=== PATIENT | female | born 1970 | race Caucasian/White ===

== ENCOUNTER → 2021-01-12 11:06 | Outpatient (CLI) | payer BC, SELFPAY ==
[2021-01-12 22:12] LABS: SARS-CoV-2 RNA PCR Negative
== END ==
PROVIDERS: PCP Family Medicine; Visit Provider Family Medicine
DX: B34.9 Viral infection, unspecified (principal); Z20.822 Contact with and (suspected) exposure to COVID-19
CPT/HCPCS: C9803; U0003; U0005

== ENCOUNTER → 2021-02-28 07:22 | Outpatient (CLI) | payer BC, SELFPAY ==
--- NOTE | ~2021-02-28 | US_ITS ---
US abdomen complete DATE: 02/28/2021 08:00 INDICATION: Epigastric abdominal pain and pressure TECHNIQUE: Real-time and color flow imaging and Doppler analysis COMPARISON: None FINDINGS: No hepatic or pancreatic space-occupying mass lesion. Normal hepatopedal portal venous flow direction. No gallstones or gallbladder wall thickening. The common bile duct measures 5.3 mm, tyler l. Negative sonographic Hudson's sign. No renal mass lesion or hydronephrosis. Right kidney measures approximately 9.9 cm length, left kidne y 10.9 cm. Normal caliber of the abdominal aorta. The inferior vena cava is unremarkable. Normal splenic size. IMPRESSION: No significant abnormality Reviewed, dictated and finalized at Location A. Reviewed, dictated and finalized at location A. IMPRESSION: No significant abnormality
== END ==
PROVIDERS: Visit Provider Family Medicine
DX: R10.13 Epigastric pain (principal)
CPT/HCPCS: 76700

== ENCOUNTER → 2021-10-15 04:34 | Outpatient (CLI) | payer BC, SELFPAY ==
[2021-10-15 17:37] LABS: SARS-CoV-2 RNA PCR Negative
== END ==
PROVIDERS: PCP Family Medicine; Visit Provider Family Medicine
DX: M25.50 Pain in unspecified joint (principal); Z20.822 Contact with and (suspected) exposure to COVID-19
CPT/HCPCS: C9803; U0003; U0005

== ENCOUNTER → 2021-11-17 10:59 | Outpatient (CLI) | payer BC, SELFPAY ==
--- NOTE | ~2021-11-17 | XR_ITS ---
XR thoracic spine 3V DATE: 11/17/2021 11:22 INDICATION: Back pain TECHNIQUE: AP, lateral, swimmer views COMPARISON: None FINDINGS: Diffuse osteopenia. There is mild to moderate degenerative disease at C5-6 and C6-7. There is mild degenerative spurring of the thoracic spine. Slight thoracic scoliosis. No fracture or dislocation or bone destruction of the thoracic spine. The thoracic pedicles are intac t. No paraspinal soft tissue thickening. IMPRESSION: Mild degenerative spurring of the thoracic spine Osteopenia Slight scoliosis Reviewed, dictated and finalized at location A. INVESTIGATOR
--- NOTE | ~2021-11-17 | XR_ITS ---
XR lumbar spine 2-3V DATE: 11/17/2021 11:22 INDICATION: Back pain TECHNIQUE: AP, lateral and coned lateral lumbosacral views COMPARISON: None FINDINGS: Slight levoscoliosis. No fracture or spondylolisthesis or bone destruction. The lumbar pedi cles are intact. There is minimal degenerative spurring at the T12-L1 interspace. Lumbosacral interspaces are well pre served. The sacroiliac joints are intact. IMPRESSION: Slight levoscoliosis Mild degenerative change Reviewed, dictated and finalized at location A. LING LINE OPERATOR
== END ==
PROVIDERS: PCP Family Medicine; Visit Provider Physician Assistant
DX: M47.815 Spondylosis without myelopathy or radiculopathy, thoracolumbar region (principal); M41.9 Scoliosis, unspecified
CPT/HCPCS: 72072; 72100

== ENCOUNTER → 2021-12-12 08:57 | Outpatient (CLI) | payer BC, SELFPAY ==
--- NOTE | ~2021-12-12 | MM_ITS ---
EXAMINATION: MM screening [facility] BI w joshua HISTORY: Screening mammogram TECHNIQUE: Craniocaudal and mediolateral oblique 3-D tomosynthesis images were obtained and synthetic 2-D images were generated. CAD analysis was submitted and interpreted. COMPARISON: 02/16/2019, 09/29/2017, 09/29/2015 bilateral screening mammogram examinations BREAST PARENCHYMAL COMPOSITION: The breasts are heterogeneously dense, which may obscure small masses . FINDINGS: There is no evidence of suspicious mass, calcification, or architectural distortion to sugg est malignancy in either breast. There has been no suspicious interval change. IMPRESSION: 1. No mammographic evidence of malignancy. 2. Recommend routine screening mammography in one year. BI-RADS Category 1: Negative Reviewed, dictated and finalized at location A. D SYSTEM INSTALLER
--- NOTE | ~2021-12-12 | DEXA_ITS ---
Bone Density Report Name: GLORIA LICONA Age: 51 Sex: Female Ethnicity: White Date of : 1970 Indication: postmenopausal; Referring Provider: STEFANI, PARTHA Study: Bone densitometry was performed. Exam Date: December 12, 2021 Accession number: [id number] Bone Density: Region BMD T-score Z-score Classification AP Spine (L1-L4) 0.990 -0.5 0.2 Normal Femoral Neck (Left) 0.791 -0.5 0.2 Normal Total Hip (Left) 0.856 -0.7 -0.3 Normal Femoral Neck (Right) 0.840 -0.1 0.6 Normal Total Hip (Right) 0.862 -0.7 -0.2 Normal Total Hip Mean 0.859 -0.7 -0.3 Normal World Health Organization criteria for BMD impression classify patients as: Normal (T-score at or above -1.0), Osteopenia (T-score between -1.0 and -2.5), or Osteoporosis (T-score at or below -2.5). 10-year Fracture Risk: FRAX not reported because: All T-scores for Spine Total, Hip Total, Femoral Neck at or above -1.0 Clinical Information Provided by Patient: Patient maximum height was 66 Menopause Age: 49 No regular weight bearing exercise Drinks caffeinated beverages Onset of menses at age 17 Number of children 3 Impression: The patient has normal bone mass. Discussion: BONE DENSITY IS ABOVE THE MINIMUM DESIRABLE LEVEL AT ALL SKELETAL SITES TESTED. This patient?s bone mineral density is above the minimum desirable level (T-score -1.0 or better) at all sites measured. The patient should follow a healthful lifestyle (good nutrition with adequate calcium and vitamin D, and appropriate weight-bearing exercise). Follow-Up: Consider repeating this study in 5 years or sooner if there is some new clinical indication. Reported by: NHUNG on 12/12/2021 9:33:00 AM. Reviewed, dictated and finalized at location APaco PANDYA
== END ==
PROVIDERS: PCP Family Medicine; Visit Provider Nurse Practitioner
DX: Z12.31 Encounter for screening mammogram for malignant neoplasm of breast (principal); Z78.0 Asymptomatic menopausal state
CPT/HCPCS: 77063; 77067; 77080

== ENCOUNTER → 2022-01-18 09:59 | Outpatient (CLI) | payer BC, SELFPAY ==
--- NOTE | ~2022-01-18 | XR_ITS ---
EXAMINATION: XR shoulder RT min 2V DATE: 01/18/2022 10:14 INDICATION: Right shoulder pain. TECHNIQUE: 4 views of right shoulder were obtained. COMPARISON: None. FINDINGS: Bone alignment is normal. No fracture. Joint spaces are normal. There is calcific tendiniti s of the rotator cuff. IMPRESSION: 1. Calcific tendinitis of right rotator cuff. Reviewed, dictated and finalized at location A. HITE MILL OPERATOR
== END ==
PROVIDERS: PCP Family Medicine; Visit Provider Physician Assistant
DX: M25.511 Pain in right shoulder (principal); M65.811 Other synovitis and tenosynovitis, right shoulder
CPT/HCPCS: 73030

== ENCOUNTER 2022-01-20 12:24 | Outpatient (CLI) | payer BC, SELFPAY ==
--- NOTE | ~2022-01-20 | XR_ITS ---
EXAMINATION: XR lg joint inject/asp w image DATE: 01/20/2022 13:08 INDICATION: Right shoulder pain. TECHNIQUE: A time-out was performed to verify the patient's name, date of , and procedure to b e performed. The procedure including the risks, benefits, and alternatives was discussed with the pat ient. Risks discussed included bleeding and infection. The patient understood the risks and agreed to proceed. The skin overlying the right glenohumeral joint was prepped and draped in usual sterile fa shion. Anesthetic was administered with 1% lidocaine subcutaneously. A 22 G needle was advanced und er fluoroscopic guidance into the joint. Injection of 1 mL of Omnipaque 240 confirmed intra-articula r position of the needle. Subsequently, injectate consisting of 3 mL 1% lidocaine and 1 mL 40 mg/mL triamcinolone was instilled. The needle was removed and the entry site was cleaned and dressed. The re were no immediate complications. Fluoroscopy exposure time was 0.1 minutes. The total number of im ages was 1. FINDINGS: Real-time fluoroscopy demonstrates the needle in the right glenohumeral joint. Patient's pa in prior to procedure:06/23. Patient's pain following the procedure: 12/24. IMPRESSION: 1. Fluoroscopy guided right glenohumeral joint injection of local anesthetic and steroid with decreas e in the patient's presenting pain. Reviewed, dictated and finalized at location A. RAM PROPOSALS COORDINATOR IMPRESSION: 1. Fluoroscopy guided right glenohumeral joint injection of local anesthetic an d steroid with decrease in the patient's presenting pain.
== END 2022-01-20 12:25 | disposition home or self-care (01) ==
PROVIDERS: PCP Family Medicine; Visit Provider Physician Assistant
DX: M25.511 Pain in right shoulder (principal)
CPT/HCPCS: 20610; 77002; J3301; Q9966

== ENCOUNTER → 2022-07-22 16:50 | Outpatient (CLI) | payer BC, SELFPAY ==
--- NOTE | ~2022-07-22 | XR_ITS ---
EXAMINATION: XR knee RT min 4V DATE: 07/22/2022 17:11 INDICATION: Right knee pain TECHNIQUE: Weight bearing anteroposterior and Anderson, sunrise, and flexed lateral views of the rig ht knee were obtained COMPARISON: None. FINDINGS: Slight lateral patellar tilt and subluxation with mild to moderate joint space narrowing at the later al side of the patellofemoral compartment. Alignment of the right knee is otherwise normal. No fractu re. Joint spaces at the medial and lateral compartments are relatively preserved. Small marginal oste ophytes along the inferior and lateral margins of the patella and along the lateral margin of the lat eral tibial plateau. Tiny marginal osteophytes at the medial compartment. Soft tissues are unremarkab le. No definitive right knee joint effusion. IMPRESSION: 1. 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 Reviewed, dictated and finalized at location A. IMPRESSION: 1. Mild patellofemoral and minimal medial and lateral compartment osteoarthriti s.
== END ==
PROVIDERS: PCP Family Medicine; Visit Provider Family Medicine
DX: M25.561 Pain in right knee (principal); M17.11 Unilateral primary osteoarthritis, right knee
CPT/HCPCS: 73564

== ENCOUNTER 2024-02-23 00:19 | Day surgery (SDC) | payer BC, SELFPAY ==
--- NOTE | 2024-02-14 09:55 | PC.NURSE ---
Report to the Outpatient Waiting Room, entrance under the green pavilion located off [facility], at time _1145 on date _02/23/24 . Planned Procedure Time: _1345 . Time changes happen often and if your time is changed the preop area will call you the afternoon before. - You and your visitor will be asked to self-screen and do not enter if you have any COVID symptoms. - A mask is optional within the hospital at this time. Patients may have clear liquids (water, carbonated beverages, clear teas, apple juice) until 8 hours prior to surgery with a maximum of 20 ounces. - No food from midnight until time of surgery - Infants may have breast milk until 4 hours before surgery, formula 6 hours prior to surgery. - Children will be allowed to drink immediately following surgery. If applicable, please bring a bottle or sippy cup to assist with drinking. Juice, water, soda, and popsicles are readily available. For infants on formula, please bring formula the day of surgery. Pacifiers are allowed. Take the following medications with a SIP of water the morning of surgery: __Levothyroxine and escitalopram DO NOT STOP ANY OF YOUR OTHER PRESCRIPTION MEDICATIONS PRIOR TO SURGERY ?EXCEPT THE FOLLOWING Medications to discontinue per physician __Vitamins Date to take last dose____3 days prior Please no make-up, nail austrian, hairspray, perfume, deodorant, or body powder the day of surgery. No jewelry (including any body piercings) or valuables the day of surgery, leave them at home. Please take a shower or bath the night before, or the morning of, surgery with an antibacterial soap. Wear comfortable, loose fitting clothing. Children are encouraged to wear pajamas. - Jewelry must be removed prior to entering the operating room. Rings and piercings that are not removed may be cut off. - The hospital will not accept responsibility for valuables. - Please leave all valuables, including medications, at home the day of surgery. If you are going home after surgery, a licensed regional company truck driver must drive you home. - NO public transportation without another adult if you receive anesthesia. - We recommend that an adult stay with you for 24 hours following discharge. - We also recommend that you do not drive, make important decision, drink alcoholic beverages, or take any drugs that were not prescribed by your health care provider for at least 24 hours after your discharge time. For Pediatric surgeries, we recommend two adults accompany the child home. Follow any additional instructions given to you from your surgeon. If you or anyone in your household have experienced Covid symptoms in the past week, please notify your surgeon or the nurse liaison at the phone number below for possible testing. Telephone instructions given to _Tanya___and asked if any additional questions and then verbalized understanding. Patient advised to call surgeon office or pre surgery nurse liaison [phone] if any additional questions.
[2024-02-14 09:58] VITALS: BMI 33.0
--- NOTE | 2024-02-23 07:07 | P.OP_ITS ---
Procedure Note - Detailed Date of Procedure 02/23/24 Pre-op Diagnosis right middle finger ganglion and retinacular cyst and left middle finger pipjoint dorsal mass/ganglion Post-op Diagnosis Same Procedure Performed excisiion right middle finger mucous cyst and retiancular cyst and left middle finger dorsal pipjoint mass Surgeon Beni Gilbert MD Anesthesia MAC Description of Procedure INFORMED CONSENT: The patient was seen and examined and marked in the pre-op area.? The patient signed the consent form. PROCEDURE IN DETAIL:The patient taken back to OR on the stretcher in supine position. Time out performed with anesthesia, surgeon and staff agreeing on patient's name site and surgery to be performed SCDs were placed on the lower extremities and inflated. A tourniquet was placed on {right} upper extremity and antibiotics given IV After anesthesia administered sedation I injected {10}cc 1%lido and 0.5% marcaine plain at the operative site sites The?{right upper extremity and left middle finger}?was prepped and draped in sterile fashion the??{right upper extremity} was? exsanguinated with Esmarch bandage and tourniquet inflated to 250mmHg I proceeded with making an elliptical incison around affected skin of right middle finger mucous cyst through skin and dermis extending this curvilinear incision proximally to dipjoint. I elevated skin flaps and proceeded with dissection around the mucous cyst back to dipjoint capsule. I elevated periosteum off of a small osteophyte which was rongeured til flat. I irrigated with normal saline and cauterized with bipolar. I repaired the capsular defect with 4-0 monocry. 4-0 chromic was used for skin. Next I took my attention to the right middle finger retinacular cyst. I made an oblique incision across Right middle finger MPJoint flexion crease through skin and dermis with a 15 blade scalpel. I elevated skin flaps and used littler s cissors to spread through subq down to the cyst coming off the a2 ensha. I made a square incision in a2 nesha around the cyst to excise the cyst. The underlying tendons appeared normal. I cauterized the edges of the nesha, irrigated with normal saline and closed skin with 4-0 chromic. A dressing of Dermabond, 4x4, katya, and a volar splint was applied for patient safety, security, and comfort and secured with an sharon bandage after the tourniquet was let down noting the hand was warm and well perfused. Next we proceeded with preppeing and draping the left middle finger in sterile fashion. I used a reena drain and clamp to created a digital tourniquet. I made an incision with 15 blade scalpel over the left middle finger pipjoint mass throgh skin and dermis continuing sharp circumferential dissection down to the pipjoint capsule. I irrigated with normal saline and closed skin with 4-0 chromic. A dressing of xeroform, 4x4 and tube gauze was applied. The patient was then awaken from anesthesia and transferred to the recovery room in stable condition.? Complications - none EBL- 0cc Disposition - home in stable conditions [facility] Billing Surgery - Charge Forward: Surgery Billing ([id number],59,XS and [id number]- LT,59)
--- NOTE | 2024-02-23 07:07 | WPDHPUPDATE1 ---
History and Physical Update Update Date/Time: 02/23/24 07:07 Patient seen and examined in pre-operative holding area. No interval change in medical history or symptoms. Patient recalls previous discussion of benefits and alternatives to procedure. Continues to desire to proceed with right middle finger mucous cyst and retinacular cyst excision possible tissue transfer and left middle finger pipjoint dorsal mass excision. Reviewed procedure, post-op expectations and risks including but not limited to bleeding, infection, injury to tendon/nerve/vessel, decreased hand function, stiffness, RSD, no change or worsening of symptoms, recurrence. I discussed the possible use of assistants and their participation in the case. Patient stated understanding and signed the consent form wishing to proceed.
[2024-02-23 11:01] VITALS: BP 133/81; PULSE 82; RESP 16; TEMP 36.4; O2SAT 97
[2024-02-23] MEDS: LACTATED RINGERS 1,000 ML 30 ML IV CONT (11:16)
--- NOTE | 2024-02-23 11:57 | WPDANESEPPF ---
Anes - Initial Pre Proc Eval Procedure: Operation Date: 02/23/24 13:00 Proposed Procedures p Excision Right Midde Finger Mucous Retinacular Cyst and Excision of Left Middle Finger Ganglion - Beni Gilbert MD Date/Time: 02/23/24 11:57 Surgeon: Beni Gilbert MD Pre Op Diagnosis: Digital Mucous Cyst Rt Middle Finger Patient Data Age: 53 Gender: F Height: 1.68 m Weight: 91.9 kg Last Vital Signs Temp 97.6 F 02/23/24 11:01 Pulse 82 02/23/24 11:01 Resp 16 02/23/24 11:01 BP 133/81 02/23/24 11:01 Pulse Ox 97 02/23/24 11:01 O2 Del Method Room Air 02/23/24 11:01 Allergies Allergy/AdvReac Type Severity Reaction Status Date / Time No Known Allergies Allergy Verified 02/23/24 10:55 Home Medications Medication Instructions Recorded Confirmed Type levothyroxine 100 mcg tablet 100 mcg PO DAILY #114 tabs 08/23/23 02/14/24 Rx escitalopram oxalate 10 mg tablet 10 mg PO DAILY #60 tabs 12/22/23 02/14/24 Rx multivit with minerals-iron 18 1 tablet PO DAILY 02/14/24 02/14/24 History mg-folic ac 400 mcg-vit K 25 mcg tablet (Adults Multivitamin) omeprazole 20 mg capsule,delayed 20 mg PO PRN PRN Indigestion 02/14/24 02/14/24 History release tramadol 50 mg tablet 50 mg PO Q6H PRN pain #12 tabs 02/23/24 Rx Patient hx anesthesia problems: none Family hx anesthesia problems: none Results Review: All pre-operative results and documents have been reviewed as part of the pre-operative evaluation. [facility] Past Medical History Medical History Depression Headache History of basal cell carcinoma Hypothyroidism Surgical History Surgical History History of surgical removal of squamous cell carcinoma of skin of left yazidi basal cell 11/2001 Hx of left knee surgery knee cap 07/2010 Family History Family History Father Acute myocardial infarction Heart disease history CABG Mother Hypothyroidism Grandparent Heart disease Lung cancer Alzheimer's dementia Social History Social History Smoking packs per day: 1 Smoking cigarettes per day: 20.0 Years smoked: 2 Smoking pack-years: 2.00 Smoking status: Former smoker Tobacco type: cigarettes Smoking end date: 11/14/03 Alcohol intake: current Drinks per week: 4 Substance use: never Substance use type: does not use Do You Feel Safe in your Home?: Yes Lack of Transportation: No Lack of Food: Never True Current Housing: I Have Housing Concerned About Future Housing: No Difficulty Paying Gas/Electric Bills: No Difficulty Paying for Meds: No Currently Unemployed: No Education: Decline to Answer Difficulty w/ Childcare or Family Care: Decline to Answer Living arrangements: with family Occupation/Education: occupation Gender identity (if verbalized by the patient): Female Sexual Orientation (if Verbalized by the Patient): Straight or Heterosexual Spiritual care concerns: No Anes - Eval Final PreProcedure Day of Procedure 02/23/24 11:57 Patient weight: obese Heart: regular rate and rhythm Lungs: clear to auscultation Airway: Mallampati scale and special considerations (Perm implant intact. ) Neurological: alert and oriented Last oral intake: >/= 8 hours ASA classification: II Emergent: no Anesthetic plan: proceed Anesthesia type and monitoring: general GIVS and standard monitoring Results Review: All pre-operative results and documents have been reviewed as part of the pre-operative evaluation. Informed Consent: The patient's anesthetic plan and its attendant risks and benefits were discussed with the patient/family/POA. Questions were solicited and answers provided to the satisfaction of the patient/family
[2024-02-23] MEDS: ceFAZolin 2 GM/D5W 50 ML 2 GM/50 ML BAG IVPB (12:55)
[2024-02-23] MEDS: LIDO 1%/EPINEPHRINE 1:100,000 50 ML VIAL INFILTRATE (13:22)
[2024-02-23] MEDS: LIDOCAINE HCL 1% LOCAL INJ 10 ML VIAL INFILTRATE (13:23)
[2024-02-23 13:37] VITALS: BP 88/48; PULSE 83; RESP 16; O2SAT 99
[2024-02-23 14:10] VITALS: BP 114/69; PULSE 66; RESP 14
[2024-02-23 14:18] VITALS: BP 118/68; PULSE 70; RESP 14
== END 2024-02-23 14:25 | disposition home or self-care (01) ==
PROVIDERS: PCP Family Medicine; Visit Provider Plastic Surgery
PROC: (CPT 26160; principal; 2024-02-23 13:00)
DX: M67.442 Ganglion, left hand (principal); M67.441 Ganglion, right hand; M25.741 Osteophyte, right hand; F32.A Depression, unspecified; E03.9 Hypothyroidism, unspecified; E66.9 Obesity, unspecified; Z68.32 Body mass index [BMI] 32.0-32.9, adult; Z79.891 Long term (current) use of opiate analgesic; Z98.890 Other specified postprocedural states; Z87.891 Personal history of nicotine dependence; Z85.828 Personal history of other malignant neoplasm of skin; Z82.49 Family history of ischemic heart disease and other diseases of the circulatory system
CPT/HCPCS: 26160 ×3; 88305; J0690; J2250; J2704; J3010; J7120

== ENCOUNTER 2024-02-24 12:23 | Outpatient (CLI) | payer BC, SELFPAY ==
--- NOTE | ~2024-02-24 | MM_ITS ---
EXAMINATION: MM screening [facility] BI w joshua HISTORY: Screening TECHNIQUE: Craniocaudal and mediolateral oblique 3-D tomosynthesis images were obtained and synthetic 2-D images were generated. CAD analysis was submitted and interpreted. COMPARISON: Comparison to multiple prior studies sequentially, with oldest reviewed study dated 2018. BREAST PARENCHYMAL COMPOSITION: Not dense: There are scattered areas of fibroglandular density. FINDINGS: There is no evidence of suspicious mass, calcification, or architectural distortion to sugg est malignancy in either breast. There has been no suspicious interval change. IMPRESSION: 1. No mammographic evidence of malignancy. 2. Recommend routine screening mammography in one year. BI-RADS Category 1: Negative Reviewed, dictated and finalized at location A.
== END 2024-02-24 12:24 ==
LOC: MICIMG 12:24
PROVIDERS: PCP Family Medicine; Visit Provider Nurse Practitioner
DX: Z12.31 Encounter for screening mammogram for malignant neoplasm of breast (principal)
CPT/HCPCS: 77063; 77067

== ENCOUNTER 2025-03-11 00:28 | Day surgery (SDC) | payer OTHER, SELFPAY ==
[2025-02-26 14:24] VITALS: BMI 35.0
--- OUTSIDE RECORDS SUMMARY | 2025-03-11 00:31 | XMS_ITS | Clinical Summary ---
Author Organization [facility] Address [address] [place] [address] Care Team Providers Care Guest Services Coordinator Name Role Phone Unavailable Primary Care Provider Unavailabl e Source Comments [facility],non-owned Affiliates and Associated Physician Practices is amultiple site organization consisting of ambulatory clinics and hospital sitesin [place], [place], [place] and [place]. This disclosure is being madepursuant to the Care Everywhere program and may not contain all information available regarding this patient. Last updated 18.[facility] Allergies No known active allergies Medications * Be aware that medications may not be up to date on this document. Alwaysverify current medications with the patient. levothyroxine (SYNTHROID) 75 MCG tablet Take 75 mcg by mouth once daily 06/22/2021 Active escitalopram (LEXAPRO) 20 MG tablet Take 20 mg by mouth once daily 07/26/2021 Active Acetaminophen (TYLENOL) 325 MG CAPS Take by mouth once daily as needed Active ibuprofen (ADVIL) 200 MG capsule Take 200 mg by mouth once daily as needed for Pain Active Immunizations Immunization Administration Dates Next Due TDAP (7yrs+) 04/27/2020 Family History Medical History Relation Name Comments CAD (Coronary Artery Disease) Father Thyroid Disease Mother Migraine Sister Relation Name Status Comments Father Alive Mother Alive Sister Alive Social History Tobacco Use Types Packs/Day Years Used Date Smoking Tobacco: Never Smokeless Tobacco: Never Alcohol Use Standard Drinks/Week Comments Yes 0 (1 standard drink = 0.6 oz pur e alcohol) socially Comments Unknown Sex and Gender Information Value Date Recorded Sex Assigned at Not on file Legal Sex Female 6:27 PM AGRICULTURAL REAL ESTATE AGENT Gender Identity Not on file Sexual Orientation Not on file Last Filed Vital Signs Vital Sign Reading Time Taken Comments Blood Pressure 117/83 11/19/2021 10:25 AM AGRICULTURAL REAL ESTATE AGENT Pulse 73 11/19/2021 10:25 AM AGRICULTURAL REAL ESTATE AGENT Temperature 36.4 C (97.6 F) 11/19/2021 10:25 AM AGRICULTURAL REAL ESTATE AGENT Respiratory Rate - - Oxygen Saturation 99% 11/19/2021 10: 25 AM AGRICULTURAL REAL ESTATE AGENT Inhaled Oxygen Concentration - - Weight 100.5 kg (221 lb 9.6 oz) 022 10:25 AM AGRICULTURAL REAL ESTATE AGENT Height 165.1 cm (5' 5 ) 11/19/2021 10:2 5 AM AGRICULTURAL REAL ESTATE AGENT Body Mass Index 36.88 11/19/2021 10:25 AM AGRICULTURAL REAL ESTATE AGENT Plan of Treatment Health Maintenance Due Date Last Done Comments COLOGUARD (AGES 45-75) - COL ON CA SCREENING 1972 COLON MONITORING 1972 COLONOSCOPY - COLON CA SCREENING 1972 CT COLONOGRAPHY - COLON CA SCREENING 1972 Colorectal Cancer Screening 1972 FIT - COLON CA SCREENING 1972 FLEX SIG - COLON CA SCREENING 1972 LIPID TESTING 1972 MAMMOGRAM 1972 HIV SCREENING 1987 HEPATITIS C SCREENING 04/26/1990 HEPATITIS B VACCINE (1 of 3 - 19+ 3-dose series) 1991 PAP SMEAR 09/30/2020 09/30/2017 SCREENING FOR DIABETES 08/14/2021 PNEUMOCOCCAL VACCINE 50+ (1 of 1 - PCV) 2022 ZOSTER VACCINE (1 of 2) 2022 COVID-19 VACCINE (1 - 2023-2 5 season) 2024 DEPRESSION SCREENING 11/14/2024 INFLUENZA VACCINE (Season Ended) 2025 DTAP/TDAP/TD VACCINES (2 - T d or Tdap) 04/27/2030 04/27/2020 HIB VACCINE Aged Out No longer eligi ble based on patient's age to complete this topic HPV VACCINE Aged Out No longer eligi ble based on patient's age to complete this topic MENINGOCOCCAL (Group B) VACC INE SHARED DECISION-MAKING Aged Out No longer eligibl e based on patient's age to complete this topic MENINGOCOCCAL GROUPS A/C/Y/W VACCINE Aged Out No longer eligible b ased on patient's age to complete this topic Insurance ANTHEM ANTHEM SELF PAY NO INSURANCE Member Subscriber Plan / Payer (Ef fective for All Dates) Name:Gloria Jeter Member ID:Not on file Relation to Subscriber:Not on file Name:GLORIA JETER Subscriber ID:Not on file Address: [address] [place] [id number] Payer ID:Not on file Group ID:Not on file Type:Self Pay Address: [place], [place] SELF PAY NO INSURANCE Member Subscriber Plan / Payer (Ef fective for All Dates) Name:Gloria Jeter Member ID:Not on file Relation to Subscriber:Not on file Name:GLORIA JETER Subscriber ID:Not on file Address: [address] [place] [id number] Payer ID:Not on file Group ID:Not on file Type:Self Pay Address: [place], [place] SELF PAY NO INSURANCE Member Subscriber Plan / Payer (Ef fective for All Dates) Name:Gloria Jeter M Member ID:Not on file Relation to Subscriber:Not on file Name:GLORIA JETER Subscriber ID:Not on file Address: [address] [place] [address] Payer ID:Not on file Group ID:Not on file Type:Self Pay Address: [place], [place]
--- OUTSIDE RECORDS SUMMARY | 2025-03-11 00:31 | XMS_ITS | Encounter Summary ---
Author Organization [facility] Address [address] [facility] [place] [address] Care Team Providers Care Printed Circuit Board Preassembler Name Role Phone Unavailable Primary Care Provider Unavailabl e Encounter Details Date Type Department Care Team (Late st Contact Info) Description 11/17/2023 Lab Requisition [facility] - DermPath Lab [address] [facility] [place] [phone] Helena Almonte DO [address] [facility] 3 [place] [address] Social History Tobacco Use Types Packs/Day Years Used Date Smoking Tobacco: Never Smokeless Tobacco: Never Alcohol Use Standard Drinks/Week Comments Yes 0 (1 standard drink = 0.6 oz pur e alcohol) socially Comments Unknown Sex and Gender Information Value Date Recorded Sex Assigned at Not on file Legal Sex Female 6:[address]PECTOR Gender Identity Not on file Sexual Orientation Not on file documented as of this encounter Plan of Treatment Not on file documented as of this encounter Procedures Procedure Name Priority Date/Time Associated Diagnosis Comments DERMATOPATHOLOGY Routine 11/17/2023 8:[address] INSPECTOR documented in this encounter Results * DERMATOPATHOLOGY (11/17/2023 8:[address] INSPECTOR) Case Report Dermatopathology Report Case: [id number] Authorizing Provider: Helena Almonte DO Collected: 11/17/2023 08:18 AM Ordering Location: [facility] DermPath Lab Received: 11/17/2023 12:40 PM Pathologist: Claire Conley MD Specimen: Skin, right FA 11:41 AM [facility] DERMATOPATHOLOGY LABORATORY Final Diagnosis Specimen A. 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 Angiolipoma 11:41 AM [facility] DERMATOPATHOLOGY LABORATORY Gross Description Specimen A: Received is one formalin filled container labeled with the patient's name and designated right FA. The specimen consists of two (2) pieces of skin measuring 12x8x2, 46d47u7 mm. The specimen is serially sectioned and a surgical sales representative section is submitted in cassette 1. Jar 0. 11:41 AM [facility] DERMATOPATHOLOGY LABORATORY Microscopic Description Specimen A. SKIN, right FA: There are numerous mature adipocytes associated with an increased number of blood vessels. 11:41 AM [facility] DERMATOPATHOLOGY LABORATORY Disclaimer An external and internal positive and negative controls are appropriate for the histochemical, immunohistochemical and immunofluorescence stain(s) in this case (if any), except where stated explicitly. The performance characteristics of the stain(s) cited in this report were developed and its performance characteristic determined by the Dermatopathology Laboratory at [facility], directed by Dr. Guerrero Begum. These tests need not be, and therefore are not, approved by the [place] Food and Drug Administration. The tests are used for clinical purposes. Billing Codes Specimen Charges Stain Charges 55276 1 11:41 AM [facility] DERMATOPATHOLOGY LABORATORY Embedded Images 11:41 AM [facility] DERMATOPATHOLOGY LABORATORY Pathology/Cytolo gy TISSUE SPECIMEN FROM SKIN / Unknown 11/17/2023 8:[address] INSPECTOR 11/17/2023 12:[address]PECTOR us Helena Almonte DO LAB - PATHOLOGY/CYTOLOGY ORDERABLES Final Result DERMATOPATHOLOGY LABORATORY [facility] - Department of Dermatology [address], [address] [phone] documented in this encounter Visit Diagnoses Not on filedocumented in this encounter
--- OUTSIDE RECORDS SUMMARY | 2025-03-11 00:31 | XMS_ITS | Clinical Summary ---
Author Organization [facility] Address [address] [place] [phone] Phone Care Team Providers Care Laundry Operator Finishing Name Role Phone Krzysztof Geiger MD Primary Care Provider Allergies No known active allergies Medications levothyroxine 50 mcg tablet Take 50 mcg by mouth daily lime mixer. Active escitalopram oxalate (LEXAPRO) 10 mg tablet Take 10 mg by mouth daily. Active escitalopram oxalate (LEXAPRO) 10 mg tablet Take 1 Tablet (10 mg) by mouth daily. 60 Tablet 12/22/2023 3:35 PM EXECUTIVE PASTRY CHEF 4 Active escitalopram oxalate (LEXAPRO) 10 mg tablet Take 1 Tablet (10 mg) by mouth daily. 60 Tablet 09/14/2024 11:21 AM CDT 4 Active Unithroid 100 mcg tablet Take 1 tablet daily Tuesday through Tuesday and 2 tablets on Saturdays and Sundays 114 Tablet 1 12/07/2024 10:04 AM EXECUTIVE PASTRY CHEF 4 Active escitalopram oxalate (LEXAPRO) 20 mg tablet Take 1 Tablet (20 mg) by mouth daily. 90 Tablet 1 02/11/2025 2:54 PM CDT 5 Active sodium, potassium and magnesium sulfates (SUPREP) 17.5-3.13-1.6 gram Recon Soln Please follow the written instructions that were mailed to you. 354 mL 12/07/2024 10:04 AM EXECUTIVE PASTRY CHEF 5 Active Immunizations Immunization Administration Dates Next Due (ADACEL/BOOSTRIX)(10 YR UP) TDAP VACCINE, 0.5ML, IM 04/27/2020 Social History Tobacco Use Types Packs/Day Years Used Date Smoking Tobacco: Never Smokeless Tobacco: Never Alcohol Use Standard Drinks/Week Comments Yes 0 (1 standard drink = 0.6 oz pur e alcohol) Comments Unknown Sex and Gender Information Value Date Recorded Sex Assigned at Not on file Legal Sex Female 7:37 PM CDT Gender Identity Not on file Sexual Orientation Not on file Last Filed Vital Signs Vital Sign Reading Time Taken Comments Blood Pressure 153/94 04/27/2020 9:26 AM CDT Pulse - - Temperature 36.6 C (97.9 F) 04/27/2020 9:26 AM CDT Respiratory Rate 20 04/27/2020 9:26 AM CDT Oxygen Saturation 100% 04/27/2020 9:26 AM CDT Inhaled Oxygen Concentration - - Weight 93.4 kg (206 lb) 04/27/2020 9:26 AM CDT Height 165.1 cm (5' 5 ) 04/27/2020 9:26 AM CDT Body Mass Index 34.28 04/27/2020 9:26 AM CDT Plan of Treatment Health Maintenance Due Date Last Done Comments HEPATITIS B VACCINES (1 of 3 - 19+ 3-dose series) 1991 HPV/Cotest (21-29) 1993 HPV/Cotest (30-65) 2002 COLORECTAL SCREENING 2017 Colorectal Cancer Screening 2017 FIT-DNA Q 3 years 2017 FIT/FOBT Q 1 year 2017 Flex Sig/CT Colonography Q 5 years 2017 BREAST CANCER SCREENING 02/17/2020 02/16/2019, 02/16 ZOSTER VACCINE (1 of 2) 2022 CERVICAL CANCER SCREENING 09/30/2023 PAP SMEAR 09/30/2023 09/30/2020, 09/14, 09/14/2018 INFLUENZA VACCINE (#1) 2024 DTAP/TDAP/TD VACCINES (2 - T d or Tdap) 04/27/2030 04/27/2020 [place] [address] [facility] [employer] RX [employer] RX Member Subscriber Plan / Payer (Ef fective 2024-Present) Name:Gloria Licona Relation to Subscriber:Not on file Name:Gloria Licona Date of :1970 Payer ID:Not on file Type:Not on file Address: [address] Care Teams Laundry Operator Finishing Relationship Specialty Start Date End Date Krzysztof Geiger MD [address] [place] [phone] PCP - General Family Practice 04/27/20
--- OUTSIDE RECORDS SUMMARY | 2025-03-11 00:31 | XMS_ITS | Clinical Summary ---
Author Organization [facility] Address [address] [place] [address] Care Team Providers Care Service Center Specialist Name Role Phone Krzysztof Geiger MD Primary Care Provider [phone] Allergies No known active allergies Social History Tobacco Use Types Packs/Day Years Used Date Smoking Tobacco: Never Smokeless Tobacco: Never Alcohol Use Standard Drinks/Week Comments Yes 0 (1 standard drink = 0.6 oz pur e alcohol) occ Comments No Sex and Gender Information Value Date Recorded Sex Assigned at Not on file Legal Sex Female 4:07 PM CDT Gender Identity Not on file Sexual Orientation Not on file Last Filed Vital Signs Vital Sign Reading Time Taken Comments Blood Pressure 155/93 06/15/2021 9:49 AM CDT Pulse 54 06/15/2021 9:49 AM CDT Temperature 36.4 C (97.5 F) 06/15/2021 9:49 AM CDT Respiratory Rate 18 06/15/2021 9:49 AM CDT Oxygen Saturation 100% 06/15/2021 9:49 AM CDT Inhaled Oxygen Concentration - - Weight - - Height - - Body Mass Index - - Plan of Treatment Health Maintenance Due Date Last Done Comments Colorectal Cancer Screening Colonoscopy (10 Years) 1972 Annual Physical 1975 Hepatitis C 1990 Hepatitis B Vaccines (1 of 3 - 19+ 3-dose series) 1991 Mammogram Screening 2012 Cervical Cancer Screening Pa p Smear (Age 30 to 64) Every 3 Years 09/30/2020 09/30/2017 Pneumococcal Vaccine: 50+ Years (1 of 1 - PCV) 2022 Zoster Vaccines (1 of 2) 2022 Cervical Cancer Screening Pa p with HPV Testing (Age 30 to 64) Every 5 Years 09/30/2022 09/30/2017 Cervical Cancer Screening wi th HPV 09/30/2022 COVID-19 Vaccine (3 - 2023- 5 season) 2024 03/01/2021, 02/08/2021 PHQ-2 (Physician [place]) 11/14/2024 DTaP, Tdap and Td Vaccines ( 2 - Td or Tdap) 04/27/2030 04/27/2020 Meningococcal B Vaccine Aged Out No l onger eligible based on patient's age to complete this topic Meningococcal Vaccine Aged Out No eric alex eligible based on patient's age to complete this topic RSV Immunizations Under 20 Months Aged Out No longer eligible b ased on patient's age to complete this topic Insurance Care Teams Service Center Specialist Relationship Specialty Start Date End Date Krzysztof Geiger MD [address] [place] [id number] PCP - General FAMILY PRACTICE 06/15/21
[2025-03-11 06:16] VITALS: BP 132/88; PULSE 74; RESP 16; TEMP 36.1; O2SAT 100
[2025-03-11 06:17] VITALS: BMI 36.9
[2025-03-11] MEDS: LACTATED RINGERS 1,000 ML 150 ML IV CONT (06:28)
--- NOTE | 2025-03-11 06:59 | WPDANESEPPF ---
Anes - Initial Pre Proc Eval Procedure: Operation Date: 03/11/25 07:30 Proposed Procedures p Screening Colonoscopy - Kyle Mcclellan MD Date/Time: 03/11/25 06:59 Surgeon: Kyle Mcclellan MD Pre Op Diagnosis: screening colon Patient Data Age: 54 Gender: F Height: 1.65 m Weight: 100.8 kg Last Vital Signs Temp 96.9 F L 03/11/25 06:16 Pulse 74 03/11/25 06:16 Resp 16 03/11/25 06:16 BP 132/88 03/11/25 06:16 Pulse Ox 100 03/11/25 06:16 O2 Del Method Room Air 03/11/25 06:16 Allergies Allergy/AdvReac Type Severity Reaction Status Date / Time No Known Allergies Allergy Verified 03/11/25 06:15 Home Medications ?Medication ?Instructions ?Recorded ?Confirmed ?Type multivit with minerals-iron 18 1 tablet PO DAILY 02/14/24 03/11/25 History mg-folic ac 400 mcg-vit K 25 mcg tablet (Adults Multivitamin) Unithroid 100 mcg tablet 100 mcg PO .COMPLEX #114 tabs 08/28/24 03/11/25 Rx (levothyroxine) valacyclovir 1 gram tablet 1,000 mg PO DAILY PRN genital 10/10/24 02/26/25 History herpes escitalopram oxalate 20 mg tablet 20 mg PO DAILY #90 tabs 11/20/24 03/11/25 Rx sodium,potassium,mag sulfates 17.5 See Rx Instructions PO .COMPLEX 12/06/24 02/26/25 Rx gram-3.13 gram-1.6 gram oral soln #354 mL (Suprep Bowel Prep Kit) Patient hx anesthesia problems: none Family hx anesthesia problems: none Results Review: All pre-operative results and documents have been reviewed as part of the pre-operative evaluation. [facility] Past Medical History Medical History Headache Depression Hypothyroidism History of basal cell carcinoma Surgical History Surgical History History of removal of cyst right middle finger mucous cyst and retinacular cyst left middle finger dorsal PIPjoint mass 02/23/24 Hx of left knee surgery knee cap 07/2010 History of surgical removal of squamous cell carcinoma of skin of left gnosticist basal cell 11/2001 Family History Family History Father Acute myocardial infarction Heart disease history CABG Parkinson disease Mother Hypothyroidism Grandparent Heart disease Lung cancer Alzheimer's dementia Social History Social History Smoking packs per day: 1 Smoking cigarettes per day: 20.0 Years smoked: 2 Smoking pack-years: 2.00 Smoking status: Former smoker Tobacco type: cigarettes Smoking end date: 11/14/03 Alcohol intake: current Drinks per week: 6 Alcohol use details: Beer Substance use: never Substance use type: does not use Do You Feel Safe in your Home?: Yes Lack of Transportation: No Lack of Food: Never True Current Housing: I Have Housing Concerned About Future Housing: No Difficulty Paying Gas/Electric Bills: No Difficulty Paying for Meds: No Currently Unemployed: No Education: Decline to Answer Difficulty w/ Childcare or Family Care: Decline to Answer Living arrangements: with family Occupation/Education: occupation Gender identity (if verbalized by the patient): Female Sexual Orientation (if Verbalized by the Patient): Straight or Heterosexual Spiritual care concerns: No Anes - Eval Final PreProcedure Day of Procedure 03/11/25 06:59 Patient weight: obese Lungs: normal air movement Airway: Mallampati scale class II Neurological: alert and oriented Last oral intake: >/= 8 hours ASA classification: II Emergent: no Anesthetic plan: proceed Anesthesia type and monitoring: general GIVS and standard monitoring Results Review: All pre-operative results and documents have been reviewed as part of the pre-operative evaluation. Hypothyroidism, active w 1-2 fos, no cp or sob. Informed Consent: The patient's anesthetic plan and its attendant risks and benefits were discussed with the patient/family/POA. Questions were solicited and answers provided to the satisfaction of the patient/family/POA.
--- NOTE | 2025-03-11 07:23 | P.HP_ITS ---
History of Present Illness History of Present Illness Consent: Risks, benefits, and alternatives have been discussed and questions answered. Patient agrees to proceed with procedure. Chief complaint: screening colon Narrative: Tanya Jeter is a 54 year old female here for first screening colonoscopy Review of Systems Review of Systems: All systems reviewed & are unremarkable except as noted in HPI and below PMFSH Past Medical History Medical History (Updated 03/11/25 @ 07:25 by Kyle Mcclellan MD) Colon cancer screening Headache Depression Hypothyroidism History of basal cell carcinoma Surgical History Surgical History History of removal of cyst right middle finger mucous cyst and retinacular cyst left middle finger dorsal PIPjoint mass 02/23/24 Hx of left knee surgery knee cap 07/2010 History of surgical removal of squamous cell carcinoma of skin of left scientology basal cell 11/2001 Family History Family History Father Acute myocardial infarction Heart disease history CABG Parkinson disease Mother Hypothyroidism Grandparent Heart disease Lung cancer Alzheimer's dementia Social History Social History Smoking packs per day: 1 Smoking cigarettes per day: 20.0 Years smoked: 2 Smoking pack-years: 2.00 Smoking status: Former smoker Tobacco type: cigarettes Smoking end date: 11/14/03 Alcohol intake: current Drinks per week: 6 Alcohol use details: Beer Substance use: never Substance use type: does not use Do You Feel Safe in your Home?: Yes Lack of Transportation: No Lack of Food: Never True Current Housing: I Have Housing Concerned About Future Housing: No Difficulty Paying Gas/Electric Bills: No Difficulty Paying for Meds: No Currently Unemployed: No Education: Decline to Answer Difficulty w/ Childcare or Family Care: Decline to Answer Living arrangements: with family Occupation/Education: occupation Gender identity (if verbalized by the patient): Female Sexual Orientation (if Verbalized by the Patient): Straight or Heterosexual Spiritual care concerns: No Meds Home Medications and Allergies Home Medications ?Medication ?Instructions ?Recorded ?Confirmed ?Type multivit with minerals-iron 18 1 tablet PO DAILY 02/14/24 03/11/25 History mg-folic ac 400 mcg-vit K 25 mcg tablet (Adults Multivitamin) Unithroid 100 mcg tablet 100 mcg PO .COMPLEX #114 tabs 08/28/24 03/11/25 Rx (levothyroxine) valacyclovir 1 gram tablet 1,000 mg PO DAILY PRN genital 10/10/24 02/26/25 History herpes escitalopram oxalate 20 mg tablet 20 mg PO DAILY #90 tabs 11/20/24 03/11/25 Rx sodium,potassium,mag sulfates 17.5 See Rx Instructions PO .COMPLEX 12/06/24 02/26/25 Rx gram-3.13 gram-1.6 gram oral soln #354 mL (Suprep Bowel Prep Kit) Allergies Allergy/AdvReac Type Severity Reaction Status Date / Time No Known Allergies Allergy Verified 03/11/25 06:15 Vital Signs Vital Signs - 24 hr 03/11/25 06:16 Temperature 96.9 F L Pulse Rate 74 Respiratory Rate 16 Blood Pressure 132/88 Pulse Oximetry 100 Oxygen Delivery Room Air Exam Const: General: comfortable and no acute distress HENMT: Face/Nose/Sinus: Normal nares present Eyes: General: appearance normal, both eyes and all related structures Neck: Neck: no JVD Resp: Auscultation: clear to auscultation bilaterally Cardio: Rate: regular rate Rhythm: regular rhythm GI: Inspection: non-distended GI Palp: Yes Soft to palpation Skin: General skin exam: normal color Neuro: General: gait normal Speech: normal speech Extrem: General: normal to inspection Psych: Mental Status: mental status grossly normal Assessment and Plan Assessment and plan (1) Colon cancer screening: Code(s): Z12.11 - Encounter for screening for malignant neoplasm of colon Status: Acute Assessment and Plan: colonoscopy
[2025-03-11 07:39] VITALS: BP 106/45; PULSE 60; RESP 18; O2SAT 97
[2025-03-11 07:49] VITALS: BP 110/59; PULSE 75; RESP 20; O2SAT 97
[2025-03-11 07:59] VITALS: BP 120/74; PULSE 57; RESP 15; O2SAT 100
== END 2025-03-11 08:09 | disposition home or self-care (01) ==
PROVIDERS: PCP Family Medicine; Referring Provider Nurse Practitioner; Visit Provider Internal Medicine Gastroenterology
PROC: 0DJD8ZZ Inspection of Lower Intestinal Tract, Via Natural or Artificial Opening Endoscopic (ICD-10-PCS; CPT 45378; principal; 2025-03-11 07:30)
DX: Z12.11 Encounter for screening for malignant neoplasm of colon (principal); K64.8 Other hemorrhoids; E03.9 Hypothyroidism, unspecified; Z87.891 Personal history of nicotine dependence
CPT/HCPCS: 45378; J2003; J2704; J7120

== ENCOUNTER 2025-05-22 16:48 | Emergency (ER) | payer OTHER, SELFPAY ==
--- NOTE | ~2025-05-22 | CT_ITS ---
CT brain wo con Ordering provider: Randell Nicholas MD History: 55 years Female with . head injury . Comparison: None. Technique: CT of the head without contrast. Radiation reduction technique utilized.The dose-length pr oduct was 605.33 mGy-cm. FINDINGS: BRAIN PARENCHYMA AND CSF SPACES: No midline shift, mass effect or hemorrhage. The brain parenchyma a nd CSF spaces are otherwise normal. VISUALIZED PARANASAL SINUSES: Well aerated. MASTOIDS: Well aerated. BONES: The bones appear intact. Bifid posterior arch of C1. SOFT TISSUES: Visualized nasopharynx is normal. Superficial soft tissues are normal. IMPRESSION: No acute intracranial findings. Reviewed, dictated and finalized at location A.
[2025-05-22 16:48] VITALS: BP 148/93; PULSE 70; RESP 16; TEMP 36.6; O2SAT 99
--- OUTSIDE RECORDS SUMMARY | 2025-05-22 16:51 | XMS_ITS | Encounter Summary ---
Author Organization [facility] Address [address] [facility] [place] [address] Care Team Providers Care Vacuum Pan Tender Name Role Phone Unavailable Primary Care Provider Unavailabl e Encounter Details Date Type Department Care Team (Late st Contact Info) Description 11/17/2023 Lab Requisition [facility] - DermPath Lab [address] [facility], [place] [phone] Helena Almonte DO [address] [facility] 3 [place] [address] Social History Tobacco Use Types Packs/Day Years Used Date Smoking Tobacco: Never Smokeless Tobacco: Never Alcohol Use Standard Drinks/Week Comments Yes 0 (1 standard drink = 0.6 oz pur e alcohol) socially Comments Unknown Sex and Gender Information Value Date Recorded Sex Assigned at Not on file Legal Sex Female 6:27 PM INSTITUTIONAL COMMODITY ANALYST Gender Identity Not on file Sexual Orientation Not on file documented as of this encounter Plan of Treatment Not on file documented as of this encounter Procedures Procedure Name Priority Date/Time Associated Diagnosis Comments DERMATOPATHOLOGY Routine 11/17/2023 8:18 AM INSTITUTIONAL COMMODITY ANALYST documented in this encounter Results * DERMATOPATHOLOGY (11/17/2023 8:18 AM INSTITUTIONAL COMMODITY ANALYST) Case Report Dermatopathology Report Case: [id number] Authorizing Provider: Helena Almonte DO Collected: 11/17/2023 08:18 AM Ordering Location: [facility] DermPath Lab Received: 11/17/2023 12:40 PM Pathologist: Claire Conley MD Specimen: Skin, right FA 11:41 AM [facility] DERMATOPATHOLOGY LABORATORY Final Diagnosis Specimen A. 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 Angiolipoma 11:41 AM [facility] DERMATOPATHOLOGY LABORATORY Gross Description Specimen A: Received is one formalin filled container labeled with the patient's name and designated right FA. The specimen consists of two (2) pieces of skin measuring 12x8x2, 76c73e7 mm. The specimen is serially sectioned and a billing representative section is submitted in cassette 1. Jar 0. 11:41 AM [facility] DERMATOPATHOLOGY LABORATORY Microscopic Description Specimen A. SKIN, right FA: There are numerous mature adipocytes associated with an increased number of blood vessels. 11:41 AM [facility] DERMATOPATHOLOGY LABORATORY Disclaimer An external and internal positive and negative controls are appropriate for the histochemical, immunohistochemical and immunofluorescence stain(s) in this case (if any), except where stated explicitly. The performance characteristics of the stain(s) cited in this report were developed and its performance characteristic determined by the Dermatopathology Laboratory at [facility], directed by Dr. Guerrero Begum. These tests need not be, and therefore are not, approved by the [place] Food and Drug Administration. The tests are used for clinical purposes. Billing Codes Specimen Charges Stain Charges 51041 1 11:41 AM [facility] DERMATOPATHOLOGY LABORATORY Embedded Images 11:41 AM [facility] DERMATOPATHOLOGY LABORATORY Pathology/Cytolo gy TISSUE SPECIMEN FROM SKIN / Unknown 11/17/2023 8:18 AM INSTITUTIONAL COMMODITY ANALYST 11/17/2023 12:40 PM INSTITUTIONAL COMMODITY ANALYST us Helena Almonte DO LAB - PATHOLOGY/CYTOLOGY ORDERABLES Final Result DERMATOPATHOLOGY LABORATORY [facility] - Department of Dermatology [address], [address] [phone] documented in this encounter Visit Diagnoses Not on filedocumented in this encounter
--- OUTSIDE RECORDS SUMMARY | 2025-05-22 16:51 | XMS_ITS | Clinical Summary ---
Author Organization [facility] Address [address] [place] [phone] Phone Care Team Providers Care Matcher Name Role Phone Krzysztof Geiger MD Primary Care Provider Allergies No known active allergies Medications levothyroxine 50 mcg tablet Take 50 mcg by mouth daily appointment specialist. Active escitalopram oxalate (LEXAPRO) 10 mg tablet Take 10 mg by mouth daily. Active escitalopram oxalate (LEXAPRO) 10 mg tablet Take 1 Tablet (10 mg) by mouth daily. 60 Tablet 12/22/2023 3:35 PM FIELD TECHNICAL SPECIALIST 4 Active escitalopram oxalate (LEXAPRO) 10 mg tablet Take 1 Tablet (10 mg) by mouth daily. 60 Tablet 09/14/2024 11:21 AM CDT 4 Active Unithroid 100 mcg tablet Take 1 tablet daily Tuesday through Tuesday and 2 tablets on Saturdays and Sundays 114 Tablet 1 12/07/2024 10:04 AM FIELD TECHNICAL SPECIALIST 4 Active sodium, potassium and magnesium sulfates (SUPREP) 17.5-3.13-1.6 gram Recon Soln Please follow the written instructions that were mailed to you. 354 mL 12/07/2024 10:04 AM FIELD TECHNICAL SPECIALIST 5 Active escitalopram oxalate (LEXAPRO) 20 mg tablet Take 1 Tablet (20 mg) by mouth daily. 90 Tablet 1 05/22/2025 3:01 PM CDT 5 Active levothyroxine 100 mcg tablet 1 Tablet (100 mcg) every Tuesday thru Tuesday AND 2 Tablets (200 mcg) every Tuesday and Tuesday. 114 Tablet 1 03/21/2025 9:21 AM CDT Active Encounters Date Type Department Care Team Description 04/23/2025 External Device Data [facility] ABSTRACTION Provider, Abstract from Last 3 Months Immunizations Immunization Administration Dates Next Due (ADACEL/BOOSTRIX)(10 [...] 9:26 AM CDT Height 165.1 cm (5' 5) 04/27/2020 9:26 AM CDT Body Mass Index [...] 09/30/2023 09/30/2020, 09/14, 09/14/2018 INFLUENZA VACCINE (#1) 2025 DTAP/TDAP/TD VACCINES (2 - T d or Tdap) 04/27/2030 04/27/2020 Insurance [facility] [employer] RX Member Subscriber Plan / Payer (Ef fective 2024-Present) Name:Gloria Jeter Relation to Subscriber:Not on file Name:Gloria Jeter Date of :1970 Payer ID:Not on file Type:Not on file Address: [address] Care Teams Matcher Relationship Specialty Start Date End Date Krzysztof Geiger MD [address] [place] [address] [place] [phone] PCP - General Family Practice 04/27/20
--- OUTSIDE RECORDS SUMMARY | 2025-05-22 16:51 | XMS_ITS | Clinical Summary ---
Author Organization [facility] [employer] Address [address] [place] [address] Care Team Providers Care Iron Piler Name Role Phone Unavailable Primary Care Provider Unavailabl e Source Comments [facility] [employer],non-owned Affiliates and Associated Physician Practices is amultiple site organization consisting of ambulatory clinics and hospital sitesin [place], [place], [place] and [place]. This disclosure is being madepursuant to the Care Everywhere program and may not contain all information available regarding this patient. 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 Gender Identity Not on file Sexual Orientation Not on file Last Filed Vital Signs Vital Sign Reading Time Taken Comments Blood Pressure 117/83 11/19/2021 10:25 AM FIXED WING AIRCRAFT FLIGHT ENGINEER Pulse 73 11/19/2021 10:25 AM FIXED WING AIRCRAFT FLIGHT ENGINEER Temperature 36.4 C (97.6 F) 11/19/2021 10:25 AM FIXED WING AIRCRAFT FLIGHT ENGINEER Respiratory Rate - - Oxygen Saturation 99% 11/19/2021 10: 25 AM FIXED WING AIRCRAFT FLIGHT ENGINEER Inhaled Oxygen Concentration - - Weight 100.5 kg (221 lb 9.6 oz) 022 10:25 AM FIXED WING AIRCRAFT FLIGHT ENGINEER Height 165.1 cm (5' 5) 11/19/2021 10:2 5 AM FIXED WING AIRCRAFT FLIGHT ENGINEER Body Mass Index 36.88 11/19/2021 10:25 AM FIXED WING AIRCRAFT FLIGHT ENGINEER Plan of Treatment Health Maintenance Due Date [...] JETER Subscriber ID:Not on file Address: [address] [place] [address] Payer ID:Not on file Group ID:Not on file Type:Self Pay Address: [place], [place] SELF PAY NO INSURANCE Member Subscriber Plan / Payer (Ef fective for All Dates) Name:Gloria Jeter Member ID:Not on file Relation to Subscriber:Not on file Name:GLORIA JETER Subscriber ID:Not on file Address: [address] [place] [address] Payer ID:Not on file Group ID:Not on file Type:Self Pay Address: [place], [place] SELF PAY NO INSURANCE Member Subscriber Plan / Payer (Ef fective for All Dates) Name:Gloria Jeter M Member ID:Not on file Relation to Subscriber:Not on file Name:GLORIA JETER Subscriber ID:Not on file Address: [address] [place] [address] Payer ID:Not on file Group ID:Not on file Type:Self Pay Address: [place], [place]
--- OUTSIDE RECORDS SUMMARY | 2025-05-22 16:51 | XMS_ITS | Clinical Summary ---
Author Organization [facility] Address [address] [place] [address] Care Team Providers Care First Responder Name Role Phone Krzysztof Geiger MD Primary Care Provider [phone] Allergies No known active allergies Social History [...] 5 season) 2024 03/01/2021, 02/08/2021 PHQ-2 (Physician Spencer) 11/14/2024 DTaP, Tdap and Td Vaccines ( [...] to complete this topic Insurance Care Teams First Responder Relationship Specialty Start Date End Date Krzysztof Geiger MD [address] [place] [id number] PCP - General FAMILY PRACTICE 06/15/21
--- OUTSIDE RECORDS SUMMARY | 2025-05-22 19:53 | XMS_ITS | Clinical Summary ---
Author Organization [facility] Address 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 Active escitalopram oxalate (LEXAPRO) 10 mg tablet Take 10 mg by mouth daily. Active escitalopram oxalate (LEXAPRO) 10 mg tablet Take 1 Tablet (10 mg) by mouth daily. 60 Tablet 12/22/2023 3:35 PM DIRECTOR OF KNOWLEDGE MANAGEMENT 4 Active escitalopram oxalate (LEXAPRO) 10 mg tablet Take 1 Tablet (10 mg) by mouth daily. 60 Tablet 09/14/2024 11:21 AM CDT 4 Active Unithroid 100 mcg tablet Take 1 tablet daily Tuesday through Tuesday and 2 tablets on Saturdays and Sundays 114 Tablet 1 12/07/2024 10:04 AM DIRECTOR OF KNOWLEDGE MANAGEMENT 4 Active sodium, potassium and magnesium sulfates (SUPREP) 17.5-3.13-1.6 gram Recon Soln Please follow the written instructions that were mailed to you. 354 mL 12/07/2024 10:04 AM DIRECTOR OF KNOWLEDGE MANAGEMENT 5 Active escitalopram oxalate (LEXAPRO) 20 mg [...] on file Address: [address]UTIERRE[address] Care Teams Timber Skidder Relationship Specialty Start Date End Date Krzysztof Geiger MD [address] [place] [address] [place] [phone] PCP - General Family Practice 04/27/20
--- OUTSIDE RECORDS SUMMARY | 2025-05-22 19:53 | XMS_ITS | Encounter Summary ---
Author Organization [facility] Address [address] [facility] [place] [address] Care Team Providers Care Legal Support Specialist Name Role Phone Unavailable Primary Care Provider Unavailabl e Encounter Details Date Type Department Care Team (Late st Contact Info) Description 11/17/2023 Lab Requisition [facility] - DermPath Lab [address] [facility] [place] [id number] Helena Almonte DO [address] [facility] [address] [place] [address] Social History Tobacco Use Types Packs/Day Years Used Date Smoking Tobacco: Never Smokeless Tobacco: Never Alcohol Use Standard Drinks/Week Comments Yes 0 (1 standard drink = 0.6 oz pur e alcohol) socially Comments Unknown Sex and Gender Information Value Date Recorded Sex Assigned at Not on file Legal Sex Female 6:27 PM PANAMA HAT HYDRAULIC PRESS OPERATOR Gender Identity Not on file Sexual Orientation Not on file documented as of this encounter Plan of Treatment Not on file documented as of this encounter Procedures Procedure Name Priority Date/Time Associated Diagnosis Comments DERMATOPATHOLOGY Routine 11/17/2023 8:18 AM PANAMA HAT HYDRAULIC PRESS OPERATOR documented in this encounter Results * DERMATOPATHOLOGY (11/17/2023 8:18 AM PANAMA HAT HYDRAULIC PRESS OPERATOR) Case Report Dermatopathology Report Case: [id number] Authorizing Provider: Helena Almonte DO Collected: 11/17/2023 08:18 AM Ordering Location: [facility] DermPath Lab Received: 11/17/2023 12:40 PM Pathologist: Claire Conley MD Specimen: Skin, right FA 11:41 AM [facility] DERMAT[facility]ATHOLOGY [facility]OR[facility] Final Diagnosis Specimen A. 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 Angiolipoma 11:41 AM [facility]ERMATOPATH[facility]Y [facility] Gross Description Specimen A: Received is one formalin filled container labeled with the patient's name and designated right FA. The specimen consists of two (2) pieces of skin measuring 12x8x2, 49h90a9 mm. The specimen is serially sectioned and a pharmaceutical specialty representative section is submitted in cassette 1. Jar 0. 11:41 AM [facility] DERMATOPATHOLOGY [facility]OR[facility] Microscopic Description Specimen A. SKIN, right FA: There are numerous mature adipocytes associated with an increased number of blood vessels. 11:41 AM [facility] DERMATOPATHOLOGY [facility]OR[facility] Disclaimer An external and internal positive and negative controls are appropriate for the histochemical, immunohistochemical and immunofluorescence stain(s) in this case (if any), except where stated explicitly. The performance characteristics of the stain(s) cited in this report were developed and its performance characteristic determined by the Dermatopathology Laboratory at [facility], directed by Dr. Guerrero Begum. These tests need not be, and therefore are not, approved by the [place] Food and Drug Administration. The tests are used for clinical purposes. Billing Codes Specimen Charges Stain Charges 91588 1 11:41 AM [facility] DERMATOPATH[facility]Y [facility] Embedded Images 11:41 AM [facility] DERMATOPATH[facility] Pathology/Cytolo gy TISSUE SPECIMEN FROM SKIN / Unknown 11/17/2023 8:18 AM PANAMA HAT HYDRAULIC PRESS OPERATOR 11/17/2023 12:40 PM PANAMA HAT HYDRAULIC PRESS OPERATOR us Helena Almonte DO LAB - PATHOLOGY/CYTOLOGY ORDERABLES Final Result DERMATOPATHOLOGY LABORATORY [facility] - Department of Dermatology [address], [address] [phone] documented in this encounter Visit Diagnoses Not on filedocumented in this encounter
--- OUTSIDE RECORDS SUMMARY | 2025-05-22 19:53 | XMS_ITS | Clinical Summary ---
Author Organization [facility] Address [address] [place] [address] Care Team Providers Care Billiard Table Repairer Name Role Phone Krzysztof Geiger MD Primary Care Provider [phone] Allergies No known active allergies Social History [...] 5 season) 2024 03/01/2021, 02/08/2021 PHQ-2 (Physician Chaffee) 11/14/2024 DTaP, Tdap and Td Vaccines ( [...] to complete this topic Insurance Care Teams Billiard Table Repairer Relationship Specialty Start Date End Date Krzysztof Geiger MD [address] [place] [id number] PCP - General FAMILY PRACTICE 06/15/21
--- OUTSIDE RECORDS SUMMARY | 2025-05-22 19:53 | XMS_ITS | Clinical Summary ---
Author Organization [facility] [employer] Address [address] [facility] [place] [address] Care Team Providers Care Meat Grader Name Role Phone Unavailable Primary Care Provider Unavailabl e Source Comments [facility] [employer],non-owned Affiliates and Associated Physician Practices is amultiple site organization consisting of ambulatory clinics and hospital sitesin [place], [place], [place] and [place]. This disclosure is being madepursuant to the Care Everywhere program and may not contain all information available regarding this patient. 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 Gender Identity Not on file Sexual Orientation Not on file Last Filed Vital Signs Vital Sign Reading Time Taken Comments Blood Pressure 117/83 11/19/2021 10:25 AM PRESCHOOL TEACHER'S ASSISTANT Pulse 73 11/19/2021 10:25 AM PRESCHOOL TEACHER'S ASSISTANT Temperature 36.4 C (97.6 F) 11/19/2021 10:25 AM PRESCHOOL TEACHER'S ASSISTANT Respiratory Rate - - Oxygen Saturation 99% 11/19/2021 10: 25 AM PRESCHOOL TEACHER'S ASSISTANT Inhaled Oxygen Concentration - - Weight 100.5 kg (221 lb 9.6 oz) 022 10:25 AM PRESCHOOL TEACHER'S ASSISTANT Height 165.1 cm (5' 5) 11/19/2021 10:2 5 AM PRESCHOOL TEACHER'S ASSISTANT Body Mass Index 36.88 11/19/2021 10:25 AM PRESCHOOL TEACHER'S ASSISTANT Plan of Treatment Health Maintenance Due Date [...] ID:Not on file Address: [address] [place] [address] Payer ID:Not on file Group ID:Not on file Type:Self Pay Address: [place], [place] SELF PAY NO INSURANCE Member Subscriber Plan / Payer (Ef fective for All Dates) Name:Gloria Jeter Member ID:Not on file Relation to Subscriber:Not on file Name:GLORIA JETER Subscriber ID:Not on file Address: [address] [place] [address] Payer ID:Not on file Group ID:Not on file Type:Self Pay Address: [place], [place] SELF PAY NO INSURANCE Member Subscriber Plan / Payer (Ef fective for All Dates) Name:Gloria Jeter M Member ID:Not on file Relation to Subscriber:Not on file Name:GLORIA JETER Subscriber ID:Not on file Address: [address] [place] [address] Payer ID:Not on file Group ID:Not on file Type:Self Pay Address: [place], [place]
--- NOTE | 2025-05-22 20:19 | ED_ITS ---
HPI - General Adult General Chief complaint: Head Injury Stated complaint: hit in head with basketball on 05/17 Time Seen by Provider: 05/22/25 19:41 History of Present Illness HPI narrative: Patient is a 55-year-old female who presents the emergency department this evening status post a head injury that occurred on 05/17. Patient states since then she has been having headaches and nausea. Patient is concerned that she has developed another concussion. States that in the past she has had 3 concussions and this feels similar. 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 her headache worsens. Denies any additional injuries or concerns. Related Data Home Medications ?Medication ?Instructions ?Recorded ?Confirmed ?Last Taken ?Type multivit with minerals-iron 18 1 tablet PO DAILY 02/14/24 04/18/25 03/10/25 History mg-folic ac 400 mcg-vit K 25 mcg tablet (Adults Multivitamin) valacyclovir 1 gram tablet 1,000 mg PO DAILY PRN genital 10/10/24 04/18/25 Unknown History herpes Allergies Allergy/AdvReac Type Severity Reaction Status Date / Time No Known Allergies Allergy Verified 04/18/25 11:06 Review of Systems Review of Systems: All systems are reviewed and are negative unless stated otherwise in the HPI. [facility] Past Medical History Medical History Colon cancer screening Headache Depression Hypothyroidism History of basal cell carcinoma Surgical History Surgical History History of removal of cyst right middle finger mucous cyst and retinacular cyst left middle finger dorsal PIPjoint mass 02/23/24 Hx of left knee surgery knee cap 07/2010 History of surgical removal of squamous cell carcinoma of skin of left yarsanism basal cell 11/2001 Family History Family History Father Acute myocardial infarction Heart disease history CABG Parkinson disease Mother Hypothyroidism Grandparent Heart disease Lung cancer Alzheimer's dementia Social History Social History Smoking packs per day: 1 Smoking cigarettes per day: 20.0 Years smoked: 2 Smoking pack-years: 2.00 Smoking status: Former smoker Tobacco type: cigarettes Smoking end date: 11/14/03 Alcohol intake: current Drinks per week: 6 Alcohol use details: Beer Substance use: never Substance use type: does not use Do You Feel Safe in your Home?: Yes Lack of Transportation: No Lack of Food: Never True Current Housing: I Have Housing Concerned About Future Housing: No Difficulty Paying Gas/Electric Bills: No Difficulty Paying for Meds: No Currently Unemployed: No Education: Decline to Answer Difficulty w/ Childcare or Family Care: Decline to Answer Living arrangements: with family Occupation/Education: occupation Gender identity (if verbalized by the patient): Female Sexual Orientation (if Verbalized by the Patient): Straight or Heterosexual Spiritual care concerns: No Exam Narrative: General: Alert, awake, afebrile, in no acute distress, pleasant female. HEENT: PERRL, no rhinorrhea, no post nasal drip, oropharynx clear. Neck: Trachea midline, no JVD, no lymphadenopathy. Cardiovascular: Regular rate and rhythm, no murmurs, rubs or gallops, no peripheral edema. Respiratory: Clear to auscultation bilaterally, no tachypnea, no wheezing, no rhonchi, no rubs, no respiratory distress. Abdomen: Soft, nontender, nondistended, no rebound, no guarding, no peritoneal signs. Musculoskeletal: No joint swelling or deformity, normal muscle tone. Skin: No rashes or petechia, no signs of infection. Psychiatric: Alert and oriented, normal behavior and judgment for situation. Neurological: Alert and oriented to person, place, and time. Follows all commands. No focal deficits, speech is clear and fluent. Course Vital Signs Vital signs: Vital Signs Temperature 97.8 F 05/22/25 16:48 Pulse Rate 70 05/22/25 16:48 Respiratory Rate 16 05/22/25 16:48 Blood Pressure 148/93 H 05/22/25 16:48 Pulse Oximetry 99 05/22/25 16:48 Oxygen Delivery Room Air 05/22/25 16:48 Temperature 97.8 F 05/22/25 16:48 Pulse Rate 70 05/22/25 16:48 Respiratory Rate 16 05/22/25 16:48 Blood Pressure 148/93 H 05/22/25 16:48 Pulse Oximetry 99 05/22/25 16:48 Oxygen Delivery Room Air 05/22/25 16:48 Medical Decision Making MDM Narrative Medical decision making narrative: The patient was evaluated by myself in the emergency department. History is obtained from patient who is an independent historian and physical exam was performed. External medical records were reviewed at this time. Imaging studies obtained included CT brain without IV contrast which was independently interpreted by me revealing no acute intracranial process, which is pending final radiology interpretation. Differential diagnosis considerations include intracranial hemorrhage, concussion. Comorbidities impacting this visit include none. I have evaluated and discussed social determinants of health with the patient that could potentially impact subsequent diagnosis and treatment plans. On repeat assessment of the patient, reevaluation revealed that the patient is doing well and is in no acute distress. Patient symptoms have remained stable since she arrived to our emergency department. Repeat vital signs were all reviewed and noted to be stable. Differential diagnosis and treatment plan were discussed with the patient at bedside. Patient agrees with discussion and after shared medical decision making agrees with discharge. All questions were answered to the patient's satisfaction. Patient will follow up with her PCP in 1 week. Provided with Neurology referral and instructed to follow-up within the next 3-5 days. Patient was provided with strict return precautions and instructed to return to the emergency department if any new or worsening symptoms develop. The patient was discharged in stable condition. Vital Signs Vital Signs: Vital Signs Temperature 97.8 F 05/22/25 16:48 Pulse Rate 70 05/22/25 16:48 Respiratory Rate 16 05/22/25 16:48 Blood Pressure 148/93 H 05/22/25 16:48 Pulse Oximetry 99 05/22/25 16:48 Oxygen Delivery Room Air 05/22/25 16:48 Temperature 97.8 F 05/22/25 16:48 Pulse Rate 70 05/22/25 16:48 Respiratory Rate 16 05/22/25 16:48 Blood Pressure 148/93 H 05/22/25 16:48 Pulse Oximetry 99 05/22/25 16:48 Oxygen Delivery Room Air 05/22/25 16:48 Discharge Plan Discharge Clinical Impression: Head injury Patient Disposition: Home Condition: Improved Instructions: Antibiotic Form, Concussion (ED), Head Injury (ED) Additional Instructions: Please follow-up with your family doctor within the next 3-5 days. You also provided with a neurology referral instructed to call to set up a follow-up appointment. Return to the ED if any new or worsening symptoms develop. Patient Language: Micronesian Prescriptions: No Action valacyclovir 1 gram tablet 1,000 mg PO DAILY PRN (Reason: genital herpes) Adults Multivitamin 18 mg iron-400 mcg-25 mcg Tablet 1 tablet PO DAILY escitalopram oxalate 20 mg tablet 20 mg PO DAILY Qty: 90 1RF levothyroxine [Unithroid] 100 mcg tablet 100 mcg PO .COMPLEX Qty: 114 1RF Rx Instructions: 100 mcg orally; 1 tablet daily Tuesday through Tuesday and 2 tablets on Saturdays and Sundays Follow-up/Referrals: Krzysztof Geiger MD [Primary Care Provider] - 1 Week Surinder Jacobo MD [Physician] - 3 Days Stand Alone Forms: Work/School Release IP Time of Disposition: 20:20
[2025-05-22 20:45] VITALS: BP 143/95; PULSE 71; RESP 16; TEMP 36.7; O2SAT 98
== END 2025-05-22 20:47 | disposition home or self-care (01) ==
PROVIDERS: Emergency Provider Emergency Medicine; PCP Family Medicine
DX: S09.90XA Unspecified injury of head, initial encounter (principal); F32.A Depression, unspecified; E03.9 Hypothyroidism, unspecified; W21.05XA Struck by basketball, initial encounter
CPT/HCPCS: 70450; 99284